=== PATIENT | male | born 1945 | race Caucasian/White ===

== ENCOUNTER 2018-08-18 10:11 | Inpatient (IN) | payer OTHER, MEDICARE ==
--- NOTE | 2018-08-18 10:38 | ER Document Report ---
ED Medical Screen (RME) - General Chief Complaint: Abdominal Pain Stated Complaint: ABDOMINAL PAIN Time Seen by Provider: 08/18/18 10:35 Mode of Arrival: Ambulatory Information source: Patient TRAVEL OUTSIDE OF THE [place] IN LAST 30 DAYS: No - HPI Patient complains to provider of: abd pain Onset: Yesterday - pt with onset of abdominal pain last night with vomiting times 2. Denies diarrhea - Related Data Allergies/Adverse Reactions: No Known Allergies Allergy (Verified 08/18/18 10:12) Past Medical History - Past Medical History Cardiac Medical History: Reports: Hx Hypertension - Hypertension Endocrine Medical History: Reports: Hx Diabetes Mellitus Type 2 Past Surgical History: Reports: Hx Abdominal Surgery, Hx Bowel Surgery - Immunizations Hx Diphtheria, Pertussis, Tetanus Vaccination: Yes Physical Exam - Vital signs Vitals: Temp Pulse Resp BP Pulse Ox 99.1 F 86 18 122/77 97 08/18/18 10:16 08/18/18 10:16 08/18/18 10:16 08/18/18 10:16 08/18/18 10:16 Course - Vital Signs Vital signs: Temp Pulse Resp BP Pulse Ox 99.1 F 86 18 122/77 97 08/18/18 10:16 08/18/18 10:16 08/18/18 10:16 08/18/18 10:16 08/18/18 10:16
[2018-08-18 11:28] LABS: ABSOLUTE EOSINOPHILS # (AUTO) 0.1 10^3/uL (0.0-0.6); ABSOLUTE LYMPHOCYTES (AUTO) 1.6 10^3/uL (0.5-4.7); ABSOLUTE NEUT (AUTO) 7.7 10^3/uL (1.7-8.2); BASOPHILS % (AUTO) 0.2 % (0-2); EOSINOPHILS % (AUTO) 0.9 % (0-6); HEMATOCRIT 41.1 % (37.9-51.0); HEMOGLOBIN 14.6 g/dL (13.5-17.0); LYMPHOCYTES % (AUTO) 15.8 % (13-45); MEAN CORPUSCULAR HGB CONC 35.5 g/dL (32.0-36.0); MEAN CORPUSCULAR VOLUME 87 fl (80-97); MONOCYTES % (AUTO) 9.5 % (3-13); PLATELET COUNT 142 10^3/uL (150-450); RED BLOOD COUNT 4.71 10^6/uL (4.35-5.55); RED CELL DISTRIBUTION WIDTH 13.2 % (11.5-14.0); SEGMENTED NEUTROPHILS % (AUTO) 73.6 % (42-78); TOTAL CELLS COUNTED % (AUTO) 100 %; WHITE BLOOD COUNT 10.4 10^3/uL (4.0-10.5)
[2018-08-18 11:35] LABS: APPEARANCE,URINE CLEAR; BILIRUBIN,URINE NEGATIVE (NEGATIVE); COLOR,URINE YELLOW; GLUCOSE, URINE NEGATIVE (NEGATIVE); KETONES,URINE NEGATIVE (NEGATIVE); LEUKOCYTE ESTERASE,URINE NEGATIVE (NEGATIVE); NITRITE,URINE NEGATIVE (NEGATIVE); PROTEIN,URINE NEGATIVE (NEGATIVE); URINE SPECIFIC GRAVITY 1.019
--- NOTE | 2018-08-18 11:42 | RADIOLOGY REPORT (SQ) ---
EXAM DESCRIPTION: ACUTE ABDOMEN SERIES COMPLETED DATE/TIME: 08/18/2018 11:09 am REASON FOR STUDY: abd pain COMPARISON: None. NUMBER OF VIEWS: Three views. TECHNIQUE: Frontal chest, supine abdomen and upright/decubitus abdomen radiographic images acquired. LIMITATIONS: None. FINDINGS: CHEST: Lungs clear of infiltrates. FREE AIR: None. No abnormal gas collections. BOWEL GAS PATTERN: Nonobstructive pattern. No dilated loops or air fluid levels. CALCIFICATIONS: No suspicious calcifications. HARDWARE: Large numbers of surgical clips are present in the mid and right abdomen. SOFT TISSUES: No gross mass or suggestion of organomegaly. BONES: No acute fracture. No worrisome bone lesions. OTHER: No other significant finding. IMPRESSION: NO RADIOGRAPHIC EVIDENCE FOR ACUTE ABDOMINAL DISEASE. TECHNICAL DOCUMENTATION: JOB ID: [id number] [employer]- All Rights Reserved Reading location - IP/workstation name: [email or web address]
[2018-08-18 11:55] LABS: ALANINE AMINOTRANSFERASE 35 U/L (21-72); ALBUMIN 4.1 g/dL (3.5-5.0); ALKALINE PHOSPHATASE 73 U/L (38-126); ANION GAP 10 (5-19); ASPARTATE AMINO TRANSFERASE 40 U/L (17-59); BILIRUBIN,DIRECT 0.2 mg/dL (0.0-0.4); BILIRUBIN,TOTAL 1.2 mg/dL (0.2-1.3); BLOOD UREA NITROGEN 19 mg/dL (7-20); CALCIUM 9.1 mg/dL (8.4-10.2); CARBON DIOXIDE 27 mmol/L (22-30); CHLORIDE 102 mmol/L (98-107); GLUCOSE 132 mg/dL (75-110); SODIUM 138.5 mmol/L (137-145); TOTAL PROTEIN 6.8 g/dL (6.3-8.2)
[2018-08-18 12:26] LABS: LIPASE 10562.6 U/L (23-300)
[2018-08-18] MEDS ORDERED: HYDROCORTISONE SOD SUCCINATE INJ/PF 100 MG/2 ML SDV IV ONE (13:04)
--- NOTE | 2018-08-18 13:51 | RADIOLOGY REPORT (SQ) ---
EXAM DESCRIPTION: CT ABD/PELVIS WITH IV ONLY COMPLETED DATE/TIME: 08/18/2018 1:10 pm REASON FOR STUDY: ABD PAIN COMPARISON: 12/17/2014 TECHNIQUE: CT scan of the abdomen and pelvis performed using helical scanning technique with dynamic intravenous contrast injection. No oral contrast. Images reviewed with lung, soft tissue, and bone windows. Reconstructed coronal and sagittal MPR images reviewed. Delayed images for evaluation of the urinary system also acquired. All images stored on PACS. All CT scanners at this facility use dose modulation, iterative reconstruction, and/or weight based d osing when appropriate to reduce radiation dose to as low as reasonably achievable (ALARA). [facility]: Dose Right [facility]: CareDose [facility]: Dose Right [facility]: Teradose 4D [facility]: Gliph CONTRAST TYPE AND DOSE: contrast/concentration: Isovue 350.00 mg/ml; Total Contrast Delivered: 100.0 ml; Total Saline Delivered: 72.0 ml RENAL FUNCTION: Creatinine -0.96 RADIATION DOSE: CT Rad equipment meets quality standard of care and radiation dose reduction techniq ues were employed. CTDIvol: 8.9 - 12.9 mGy. DLP: 1199 mGy-cm.. LIMITATIONS: None. FINDINGS: LOWER CHEST: No significant interval changes. Elevation of the left hemidiaphragm. LIVER: Prior resection of the right hepatic lobe. Persistent decrease in the pneumobilia and air in the pancreatic duct since the prior study, likely on a post surgical basis. The hepatic and portal veins are patent. SPLEEN: Splenule, normal anatomic variant. Normal size. No focal lesions. PANCREAS: As on the previous examination, mild haziness and stranding involving the peripancreatic s oft tissues and in the left upper quadrant of the abdomen. These findings may be on the basis of acu te superimposed inflammatory changes. GALLBLADDER: Prior cholecystectomy. ADRENAL GLANDS: The previously identified left adrenal nodule is not visualized on the current study . RIGHT KIDNEY AND URETER: No solid masses. No significant calcifications. No hydronephrosis or hyd roureter. LEFT KIDNEY AND URETER: Exophytic lesion off of the upper pole of the left kidney has increased in s ize and measures 17 mm on the current study, compared to 9.6 mm on the prior examination. No hydronep hrosis or hydroureter. AORTA AND VESSELS: No aneurysm. No dissection. Renal arteries, SMA, celiac without stenosis. RETROPERITONEUM: No retroperitoneal adenopathy, hemorrhage or masses. BOWEL AND PERITONEAL CAVITY: Constipation. No masses or inflammatory changes. No free fluid or adelita toneal masses. APPENDIX: Normal. PELVIS: Prostate gland is stable in appearance. Fat in the upper scrotal sacs. Mild thickening of the urinary bladder wall. No free fluid. ABDOMINAL WALL: Small fat containing umbilical hernia. BONES: The osseous structures are stable in appearance. OTHER: No other significant finding. IMPRESSION: 1. Mild haziness and stranding involve the peripancreatic soft tissues and in the left upper quadrant of the abdomen, findings are similar to the examination dated 12/17/2014. Consideratio ns for these findings include acute superimposed inflammatory changes. 2. Prior resection of the right hepatic lobe. 3. The previously demonstrated left adrenal nodule is not visualized on the current study. 4. Additional stable findings as above. COMMENT: 1. The results of this examination were discussed with emergency department provider on at 13:45 hours. TECHNICAL DOCUMENTATION: JOB ID: [id number] Quality ID # [id number]: Final reports with documentation of one or more dose reduction techniques (e.g., Au tomated exposure control, adjustment of the mA and/or kV according to patient size, use of iterative reconstruction technique) 2010 [employer]- All Rights Reserved Reading location - IP/workstation name: [email or web address]
--- NOTE | 2018-08-18 13:57 | ER Document Report ---
ED GI/ - General Chief Complaint: Abdominal Pain Stated Complaint: ABDOMINAL PAIN Time Seen by Provider: 08/18/18 10:35 Mode of Arrival: Ambulatory Information source: Patient Notes: Patient is a 72-year-old male with past medical history of metastatic melanoma in 2002 to his abdomen. He did have abdominal surgeries with gallbladder resection and adrenal gland resection. Patient has had a recurrence of the melanoma x3 in the past. Patient was here in 2014 with some abdominal pain found to have pancreatitis. He was transferred to [facility] and it appears that the patient had a retained biliary stent that the family states was supposed to have taken out immediately after the surgery in 2004 but was accidentally left in. Patient has not had pancreatitis prior after this incidence. Last night the patient had some epigastric nonradiating abdominal discomfort. Nausea and vomiting x2. He was not able to take his hydrocortisone medication secondary to this. No lower abdominal pain or diarrhea. Temperature max of 100.6. TRAVEL OUTSIDE OF THE [place] IN LAST 30 DAYS: No - HPI Patient complains to provider of: Other - See above Timing/Duration: Gradual Quality of pain: Achy Severity at maximum: Moderate Severity in ED: Mild Pain Level: 1 Location: Other - See above Sexual history: Active Associated symptoms: Other - See above Exacerbated by: Denies Relieved by: Denies Similar symptoms previously: No Recently seen / treated by doctor: No - Related Data Allergies/Adverse Reactions: No Known Allergies Allergy (Verified 08/18/18 10:12) Past Medical History - General Information source: Patient - Social History Smoking Status: Former Smoker Cigarette use (# per day): No Chew tobacco use (# tins/day): No Smoking Education Provided: No Frequency of alcohol use: Occasional Drug Abuse: None Family History: Reviewed & Not Pertinent Patient has suicidal ideation: No Patient has homicidal ideation: No - Past Medical History Cardiac Medical History: Reports: Hx Hypertension - Hypertension Endocrine Medical History: Reports: Hx Diabetes Mellitus Type 2 Renal/ Medical History: Denies: Hx Peritoneal Dialysis Past Surgical History: Reports: Hx Abdominal Surgery, Hx Bowel Surgery, Hx Cholecystectomy - Immunizations Hx Diphtheria, Pertussis, Tetanus Vaccination: Yes Hx Pneumococcal Vaccination: 08/07/13 Review of Systems - Review of Systems Constitutional: Fever EENT: denies: Eye discharge, Nose discharge Cardiovascular: denies: Chest pain, Palpitations Respiratory: denies: Short of breath Gastrointestinal: Vomiting. denies: Diarrhea Genitourinary: denies: Dysuria Musculoskeletal: denies: Leg swelling Skin: Other - no hives. denies: Rash Neurological/Psychological: Other - no slurred speech -: Yes All other systems reviewed and negative Physical Exam - Vital signs Vitals: Temp Pulse Resp BP Pulse Ox 99.1 F 86 18 122/77 97 08/18/18 10:16 10 10:16 08/18/18 10:16 08/18/18 10:16 08/18/18 10:16 Notes: Reviewed vital signs and nursing note as charted by RN. CONSTITUTIONAL: Alert and oriented and responds appropriately to questions. Well -appearing; well-nourished HEAD: Normocephalic; atraumatic EYES: Sclerae non-icteric CARD: Regular rate and rhythm; no murmurs, no clicks, no rubs, no gallops; symmetric distal pulses RESP: Normal chest excursion without splinting or tachypnea; breath sounds clear and equal bilaterally; no wheezes, no rhonchi, no rales ABD/GI: Normal bowel sounds; non-distended; soft, mildly tender the epigastric region, no rebound, no guarding; no palpable organomegaly or masses BACK: The back appears normal and is non-tender to palpation, there is no CVA tenderness EXT: Normal ROM in all joints; non-tender to palpation; no cyanosis, no effusions, no edema SKIN: Normal color for age and race; warm; dry; good turgor; capillary refill < 2 seconds; no acute lesions noted NEURO: Moves all extremities equally; Motor and sensory function intact PSYCH: The patient's mood and manner are appropriate. Grooming and personal hygiene are appropriate. Course - Re-evaluation Re-evalutation: 08/18/18 13:55 Given the above history and physical examination, we ordered basic labs including a liver panel and lipase. Lipase as recorded. CT scan of the abdomen and pelvis was ordered showing no obvious dilation with some peripancreatic soft tissue inflammation consistent with pancreatitis. I have called and spoken to the radiologist about the pneumobilia which she states is common and not an acute finding. Patient's pain is much improved. Afebrile here. Given that he was not able to take his hydrocortisone I have provided an IV dose, doubling the dose as a stress response dose. Patient is requesting not to be transferred to [facility]. He actually stated that he thought he would like to go home. Given that the patient has not been able to take his hydrocortisone medication and still is having some mild pain, family would like him to stay. He has accepted this. I spoke to the hospitalist was accepted into the service. - Vital Signs Vital signs: Temp Pulse Resp BP Pulse Ox 99.1 F 86 18 122/77 97 08/18/18 10:16 08/18/18 10:16 08/18/18 10:16 08/18/18 10:16 08/18/18 10:16 - Laboratory Result Diagrams: 08/18/18 10:50 08/18/18 10:50 Laboratory results interpreted by me: 08/18/18 08/18/18 08/18/18 10:50 10:50 10:50 Plt Count 142 L Glucose 132 H Lipase 20831.6 H Urine Urobilinogen 4.0 H Discharge - Discharge Clinical Impression: Pancreatitis Qualifiers: Chronicity: acute Pancreatitis type: unspecified pancreatitis type Acute pancreatitis complication: unspecified Qualified Code(s): K85.90 - Acute pancreatitis without necrosis or infection, unspecified Condition: Fair Disposition: ADMITTED OBSERVATION Admitting Provider: Hospitalist Unit Admitted: Medical Floor
[2018-08-18] MEDS ORDERED: ONDANSETRON HCL INJ/PF 4 MG/2 ML SDV IV PRN (15:28)
[2018-08-18] MEDS ORDERED: DEXTROSE 40% GEL 15 GM TUBE PO PRN ×4 (15:28→15:57)
[2018-08-18] MEDS ORDERED: ACETAMINOPHEN 325 MG TABLET PO PRN (15:28)
[2018-08-18] MEDS ORDERED: DEXTROSE 50%-WATER 25 GM/50 ML DISP.SYRIN IV PRN ×4 (15:28→15:57)
[2018-08-18] MEDS ORDERED: GLUCAGON,HUMAN RECOMB 1 MG INJ SUBCUT PRN (15:28)
[2018-08-18] MEDS ORDERED: HYDROMORPHONE HCL INJ/PF 2 MG/ML AMPULE IV PRN (15:39)
[2018-08-18] MEDS ORDERED: GLUCAGON,HUMAN RECOMB 1 MG INJ IM PRN (15:57)
[2018-08-18] MEDS ORDERED: INSULIN REG, HUMAN 100 UNIT/ML 3 ML VIAL (PYX) SUBCUT PRN (15:57)
--- NOTE | 2018-08-18 15:57 | PDOC H&P ---
History of Present Illness Admission Date/PCP: 08/18/18 13:57 Patient complains of: Abdominal pain History of Present Illness: MELECIO PAUL is a 72 year old male who was in his normal state of health. Approximately 12:30 AM this morning patient developed abdominal pain. When he got out of bed the pain appeared to intensify. Patient is a prior history of pancreatitis and it felt similar. The pain persisted throughout the night and into the morning he presented to the emergency room. Patient has a prior history of abdominal surgery due to metastatic melanoma. Approximately 14 years ago he underwent a laparotomy with resection of a lobe of the liver removal of the gallbladder and bilateral adrenal glands. He was treated for his melanoma and it went into remission. Approximately 2 years ago it returned and he was placed on Optivo and is once again in remission. During his first surgical resection a biliary stent was placed which was subsequently her liver removed 2 years ago when he had about of pancreatitis and a CT at that time showed he still had the biliary stent which was placed during surgery. It was subsequently removed without incident and he has been fine since. Patient has adrenal insufficiency due to his adrenal gland resections he is on Florinef and hydrocortisone. Workup in the emergency room included laboratory studies which showed a fairly unremarkable CBC LFTs were normal his lipase was 10,000. CT showed inflammation of the pancreas no dilatation of the biliary ducts. He was given 50 of IV hydrocortisone for his adrenal insufficiency to cover stress and a request for admission was made. 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, Other - Adrenal insufficiency secondary to surgical resection of the adrenal glands Malignancy Medical History: Reports: Other - Melanoma metastatic currently in remission Past Surgical History Past Surgical History: Reports: Cholecystectomy, Other - Laparotomy with resection of gallbladder lobe of the liver and adrenals Social History Smoking Status: Former Smoker Frequency of Alcohol Use: None Hx Recreational Drug Use: No Hx Prescription Drug Abuse: No Family History Family History: CAD - Father, Hypertension - Father Parental Family History Reviewed: Yes Children Family History Reviewed: Yes Sibling(s) Family History Reviewed.: Yes Medication/Allergy Home Medications: Amlodipine Besylate [Norvasc 10 mg Tablet] 5 mg PO DAILY 08/18/18 Allergies/Adverse Reactions: No Known Allergies Allergy (Verified 10/12/18 10:12) Physical Exam Vital Signs: Temp Pulse Resp BP Pulse Ox 99.1 F 86 18 122/77 97 08/18/18 10:16 08/18/18 10:16 08/18/18 10:16 08/18/18 10:16 08/18/18 10:16 General appearance: PRESENT: no acute distress, well-developed, well-nourished Head exam: PRESENT: atraumatic, normocephalic Eye exam: PRESENT: conjunctiva pink, EOMI, PERRLA. ABSENT: scleral icterus Neck exam: ABSENT: carotid bruit, JVD, lymphadenopathy, thyromegaly Respiratory exam: PRESENT: clear to auscultation amandeep. ABSENT: rales, rhonchi, wheezes Cardiovascular exam: PRESENT: RRR. ABSENT: diastolic murmur, rubs, systolic murmur Pulses: PRESENT: normal dorsalis pedis pul GI/Abdominal exam: PRESENT: guarding - Positive on palpation, normal bowel sounds, rebound, soft, tenderness - Midepigastric tenderness. ABSENT: distended , mass, organolmegaly Extremities exam: PRESENT: full ROM. ABSENT: calf tenderness, clubbing, pedal edema Neurological exam: PRESENT: alert, awake, oriented to person, oriented to place , oriented to time, oriented to situation, CN II-XII grossly intact. ABSENT: motor sensory deficit Psychiatric exam: PRESENT: appropriate affect, normal mood. ABSENT: homicidal ideation, suicidal ideation Skin exam: PRESENT: dry, intact, warm. ABSENT: cyanosis, rash Results Impressions: Abdomen/Pelvis CT 08/18/18 00:00 IMPRESSION: 1. Mild haziness and stranding involve the peripancreatic soft tissues and in the left upper quadrant of the abdomen, findings are similar to the examination dated 12/17/2014. Considerations for these findings include acute superimposed inflammatory changes. 2. Prior resection of the right hepatic lobe. 3. The previously demonstrated left adrenal nodule is not visualized on the current study. 4. Additional stable findings as above. Acute Abdomen Series 08/18/18 10:36 IMPRESSION: NO RADIOGRAPHIC EVIDENCE FOR ACUTE ABDOMINAL DISEASE. Assessment & Plan - Diagnosis (1) Acute pancreatitis Is this a current diagnosis for this admission?: Yes Plan: Admit patient to the medical floor provided D5 lactated Ringer's n.p.o. except for meds and ice chips. Dilaudid for pain control (2) History of melanoma Is this a current diagnosis for this admission?: Yes Plan: Currently in remission as per patient no further workup planned (3) Adrenal insufficiency Is this a current diagnosis for this admission?: Yes Plan: Will increase hydrocortisone to 50 mg twice daily reducing back to his normal dose of 20 mg in the morning 10 at night when the stress of the pancreatitis past. (4) Diabetes Qualifiers: Diabetes mellitus type: type 2 Diabetes mellitus complication status: without complication Is this a current diagnosis for this admission?: Yes Plan: Patient diet-controlled will place on sliding scale (5) Hypertension Is this a current diagnosis for this admission?: Yes Plan: Hold amlodipine reinitiate when indicated. - Time Time Spent: 50 to 70 Minutes Anticipated discharge: Home Within: within 72 hours
[2018-08-18] MEDS: DEXTROSE 5%-LACTATED RINGERS 1,000 ML IV PRN (18:13)
[2018-08-19] MEDS: DEXTROSE 5%-LACTATED RINGERS 1,000 ML IV PRN ×2 (04:33→16:55)
[2018-08-19 05:25] LABS: ABSOLUTE EOSINOPHILS # (AUTO) 0.1 10^3/uL (0.0-0.6); ABSOLUTE LYMPHOCYTES (AUTO) 3.3 10^3/uL (0.5-4.7); ABSOLUTE MONOCYTES (AUTO) 0.7 10^3/uL (0.1-1.4); ABSOLUTE NEUT (AUTO) 4.4 10^3/uL (1.7-8.2); BASOPHILS % (AUTO) 0.2 % (0-2); HEMATOCRIT 36.9 % (37.9-51.0); HEMOGLOBIN 13.1 g/dL (13.5-17.0); LYMPHOCYTES % (AUTO) 38.9 % (13-45); MEAN CORPUSCULAR HEMOGLOBIN 31.1 pg (27.0-33.4); MEAN CORPUSCULAR HGB CONC 35.6 g/dL (32.0-36.0); MEAN CORPUSCULAR VOLUME 87 fl (80-97); MONOCYTES % (AUTO) 8.2 % (3-13); PLATELET COUNT 133 10^3/uL (150-450); RED BLOOD COUNT 4.23 10^6/uL (4.35-5.55); RED CELL DISTRIBUTION WIDTH 13.4 % (11.5-14.0); SEGMENTED NEUTROPHILS % (AUTO) 51.7 % (42-78); TOTAL CELLS COUNTED % (AUTO) 100 %; WHITE BLOOD COUNT 8.6 10^3/uL (4.0-10.5)
[2018-08-19 05:43] LABS: ALANINE AMINOTRANSFERASE 38 U/L (21-72); ALBUMIN 3.3 g/dL (3.5-5.0); ALKALINE PHOSPHATASE 56 U/L (38-126); ANION GAP 5 (5-19); ASPARTATE AMINO TRANSFERASE 27 U/L (17-59); BILIRUBIN,DIRECT 0.3 mg/dL (0.0-0.4); BILIRUBIN,TOTAL 1.4 mg/dL (0.2-1.3); BLOOD UREA NITROGEN 17 mg/dL (7-20); CALCIUM 8.6 mg/dL (8.4-10.2); CARBON DIOXIDE 32 mmol/L (22-30); CHLORIDE 102 mmol/L (98-107); CHOLESTEROL 117.62 mg/dL (0-200); GLUCOSE 108 mg/dL (75-110); PHOSPHORUS 3.1 mg/dL (2.5-4.5); POTASSIUM 3.8 mmol/L (3.6-5.0); TOTAL PROTEIN 5.7 g/dL (6.3-8.2); TRIGLYCERIDES 62 mg/dL (<150)
[2018-08-19 05:54] LABS: DIRECT LDL 60 mg/dL (<100)
[2018-08-19] MEDS: HYDROCORTISONE 10 MG TABLET PO SCH ×2 (07:26→17:35)
[2018-08-19] MEDS: FLUDROCORTISONE ACETATE 0.1 MG TABLET PO SCH (09:13)
[2018-08-19] MEDS: DOCUSATE SODIUM 100 MG CAPSULE PO SCH (09:13)
[2018-08-19] MEDS: ENOXAPARIN SODIUM INJ 40 MG/0.4 ML DISP.SYRIN SUBCUT SCH (09:15)
--- NOTE | 2018-08-19 13:25 | PDOC PROGRESS REPORT ---
Subjective Progress Note for:: 08/19/18 Subjective:: 72-year-old white male admitted for acute pancreatitis. Has been n.p.o. pain is decreased. Lipase now 7000. White count remains normal no evidence of biliary obstruction. No new complaints Reason For Visit: PANCREATITIS Physical Exam Vital Signs: Temp Pulse Resp BP Pulse Ox 98.2 F 73 17 136/66 H 97 08/19/18 11:41 08/19/18 11:41 08/19/18 11:41 08/19/18 11:41 08/19/18 11:41 Intake & Output 08/18/18 08/19/18 08/20/18 06:59 06:59 06:59 Intake Total 1000 Balance 1000 Weight 81.6 kg General appearance: PRESENT: no acute distress, well-developed, well-nourished Neck exam: ABSENT: carotid bruit, JVD, lymphadenopathy, thyromegaly Respiratory exam: PRESENT: clear to auscultation amandeep. ABSENT: rales, rhonchi, wheezes Cardiovascular exam: PRESENT: RRR. ABSENT: diastolic murmur, rubs, systolic murmur GI/Abdominal exam: PRESENT: normal bowel sounds, soft, tenderness - Midepigastric improved from 24 hours ago. ABSENT: distended, guarding, mass, organolmegaly, rebound Extremities exam: PRESENT: full ROM. ABSENT: calf tenderness, clubbing, pedal edema Results Laboratory Results: 08/19/18 04:22 08/19/18 04:22 08/19/18 08/19/18 04:22 04:22 WBC 8.6 RBC 4.23 L Hgb 13.1 L Hct 36.9 L MCV 87 MCH 31.1 MCHC 35.6 RDW 13.4 Plt Count 133 L Seg Neutrophils % 51.7 Lymphocytes % 38.9 Monocytes % 8.2 Eosinophils % 1.0 Basophils % 0.2 Absolute Neutrophils 4.4 Absolute Lymphocytes 3.3 Absolute Monocytes 0.7 Absolute Eosinophils 0.1 Absolute Basophils 0.0 Sodium 139.0 Potassium 3.8 Chloride 102 Carbon Dioxide 32 H Anion Gap 5 BUN 17 Creatinine 0.83 Est GFR ( Amer) > 60 Est GFR (Non-Af Amer) > 60 Glucose 108 Calcium 8.6 Phosphorus 3.1 Magnesium 1.8 Total Bilirubin 1.4 H AST 27 ALT 38 Alkaline Phosphatase 56 Total Protein 5.7 L Albumin 3.3 L Triglycerides 62 Cholesterol 117.62 LDL Cholesterol Direct 60 VLDL Cholesterol 12.0 HDL Cholesterol 42 Lipase 7334.0 H Impressions: Abdomen/Pelvis CT 08/18/18 00:00 IMPRESSION: 1. Mild haziness and stranding involve the peripancreatic soft tissues and in the left upper quadrant of the abdomen, findings are similar to the examination dated 12/17/2014. Considerations for these findings include acute superimposed inflammatory changes. 2. Prior resection of the right hepatic lobe. 3. The previously demonstrated left adrenal nodule is not visualized on the current study. 4. Additional stable findings as above. Acute Abdomen Series 08/18/18 10:36 IMPRESSION: NO RADIOGRAPHIC EVIDENCE FOR ACUTE ABDOMINAL DISEASE. Assessment & Plan - Diagnosis (1) Acute pancreatitis Is this a current diagnosis for this admission?: Yes Plan: Continue n.p.o. status. Lipase in a.m. Will consider beginning clear liquids when patient's pain is minimal lipase under 600 (2) History of melanoma Is this a current diagnosis for this admission?: Yes (3) Adrenal insufficiency Is this a current diagnosis for this admission?: Yes Plan: On increased hydrocortisone 50 mg twice daily. Will taper to 25 twice daily tomorrow (4) Diabetes Qualifiers: Diabetes mellitus type: type 2 Diabetes mellitus complication status: without complication Is this a current diagnosis for this admission?: Yes Plan: Good glycemic control. Sliding scale coverage patient is a diet-controlled diabetic (5) Hypertension Is this a current diagnosis for this admission?: Yes Plan: Normotensive continue to monitor no change in medication
[2018-08-20] MEDS: DEXTROSE 5%-LACTATED RINGERS 1,000 ML IV PRN ×2 (02:10→15:20)
[2018-08-20] MEDS: HYDROCORTISONE 10 MG TABLET PO SCH (09:27)
[2018-08-20] MEDS: DOCUSATE SODIUM 100 MG CAPSULE PO SCH (09:27)
[2018-08-20] MEDS: FLUDROCORTISONE ACETATE 0.1 MG TABLET PO SCH (09:28)
[2018-08-20] MEDS: ENOXAPARIN SODIUM INJ 40 MG/0.4 ML DISP.SYRIN SUBCUT SCH (09:29)
--- NOTE | 2018-08-20 11:19 | PDOC PROGRESS REPORT ---
Subjective Progress Note for:: 08/20/18 Subjective:: 72-year-old white male admitted for acute pancreatitis. Has been n.p.o. pain is decreased. Lipase now 2200. White count remains normal no evidence of biliary obstruction. No new complaints Reason For Visit: PANCREATITIS Physical Exam Vital Signs: Temp Pulse Resp BP Pulse Ox 98.3 F 65 15 147/68 H 99 08/20/18 07:32 08/20/18 07:32 08/20/18 07:32 08/20/18 07:32 08/20/18 07:32 Intake & Output 08/19/18 08/20/18 08/21/18 06:59 06:59 06:59 Intake Total 1000 1925 Balance 1000 1925 Weight 81.6 kg 81.6 kg General appearance: PRESENT: no acute distress, well-developed, well-nourished Respiratory exam: PRESENT: clear to auscultation amandeep. ABSENT: rales, rhonchi, wheezes Cardiovascular exam: PRESENT: RRR. ABSENT: diastolic murmur, rubs, systolic murmur GI/Abdominal exam: PRESENT: normal bowel sounds, soft, tenderness - Minimal midepigastric tenderness. ABSENT: distended, guarding, mass, organolmegaly, rebound Extremities exam: PRESENT: full ROM. ABSENT: calf tenderness, clubbing, pedal edema Results Laboratory Results: 08/19/18 04:22 08/19/18 04:22 08/20/18 04:53 Lipase 2255.2 H Impressions: Abdomen/Pelvis CT 08/18/18 00:00 IMPRESSION: 1. Mild haziness and stranding involve the peripancreatic soft tissues and in the left upper quadrant of the abdomen, findings are similar to the examination dated 12/17/2014. Considerations for these findings include acute superimposed inflammatory changes. 2. Prior resection of the right hepatic lobe. 3. The previously demonstrated left adrenal nodule is not visualized on the current study. 4. Additional stable findings as above. Acute Abdomen Series 08/18/18 10:36 IMPRESSION: NO RADIOGRAPHIC EVIDENCE FOR ACUTE ABDOMINAL DISEASE. Assessment & Plan - Diagnosis (1) Acute pancreatitis Is this a current diagnosis for this admission?: Yes Plan: Continue n.p.o. status for 24 hours. CMP and lipase in a.m. Will consider beginning clear liquids when patient's pain is minimal lipase under 800 (2) Adrenal insufficiency Is this a current diagnosis for this admission?: Yes Plan: Resume patient's normal dose of hydrocortisone 20 mg a.m. 10 mg p.m. (3) Diabetes Qualifiers: Diabetes mellitus type: type 2 Diabetes mellitus complication status: without complication Is this a current diagnosis for this admission?: Yes Plan: Hemoglobin A1c 5.8 good glycemic control. Sliding scale coverage patient is a diet-controlled diabetic (4) Hypertension Is this a current diagnosis for this admission?: Yes Plan: Normotensive continue to monitor no change in medication (5) History of melanoma Is this a current diagnosis for this admission?: Yes Plan: Currently in remission - Time Time Spent with patient: 25-34 minutes Anticipated discharge: Home Within: within 48 hours
[2018-08-20] MEDS ORDERED: HYDROCORTISONE 10 MG TABLET PO SCH (18:00)
[2018-08-21] MEDS: DEXTROSE 5%-LACTATED RINGERS 1,000 ML IV PRN (05:50)
[2018-08-21 06:14] LABS: ABSOLUTE EOSINOPHILS # (AUTO) 0.1 10^3/uL (0.0-0.6); ABSOLUTE LYMPHOCYTES (AUTO) 3.4 10^3/uL (0.5-4.7); ABSOLUTE MONOCYTES (AUTO) 0.5 10^3/uL (0.1-1.4); BASOPHILS % (AUTO) 0.4 % (0-2); EOSINOPHILS % (AUTO) 0.7 % (0-6); HEMATOCRIT 37.6 % (37.9-51.0); HEMOGLOBIN 13.6 g/dL (13.5-17.0); MEAN CORPUSCULAR HEMOGLOBIN 31.2 pg (27.0-33.4); MEAN CORPUSCULAR HGB CONC 36.3 g/dL (32.0-36.0); MEAN CORPUSCULAR VOLUME 86 fl (80-97); MONOCYTES % (AUTO) 7.1 % (3-13); PLATELET COUNT 145 10^3/uL (150-450); RED BLOOD COUNT 4.38 10^6/uL (4.35-5.55); SEGMENTED NEUTROPHILS % (AUTO) 42.8 % (42-78); TOTAL CELLS COUNTED % (AUTO) 100 %; WHITE BLOOD COUNT 6.9 10^3/uL (4.0-10.5)
[2018-08-21 06:36] LABS: ALANINE AMINOTRANSFERASE 32 U/L (21-72); ALBUMIN 3.5 g/dL (3.5-5.0); ALKALINE PHOSPHATASE 58 U/L (38-126); ANION GAP 9 (5-19); ASPARTATE AMINO TRANSFERASE 21 U/L (17-59); BILIRUBIN,DIRECT 0.3 mg/dL (0.0-0.4); BILIRUBIN,TOTAL 1.2 mg/dL (0.2-1.3); BLOOD UREA NITROGEN 13 mg/dL (7-20); CALCIUM 8.7 mg/dL (8.4-10.2); CARBON DIOXIDE 27 mmol/L (22-30); CHLORIDE 107 mmol/L (98-107); GLUCOSE 90 mg/dL (75-110); LIPASE 1063.8 U/L (23-300); POTASSIUM 3.3 mmol/L (3.6-5.0); SODIUM 142.7 mmol/L (137-145)
[2018-08-21] MEDS ORDERED: HYDROCORTISONE 10 MG TABLET PO SCH (08:00)
[2018-08-21] MEDS: DOCUSATE SODIUM 100 MG CAPSULE PO SCH (09:54)
[2018-08-21] MEDS: ENOXAPARIN SODIUM INJ 40 MG/0.4 ML DISP.SYRIN SUBCUT SCH (09:55)
[2018-08-21] MEDS ORDERED: OXYCODONE-ACETAMINOPHEN 5-325 MG TABLET PO PRN (10:21)
[2018-08-21] MEDS: FLUDROCORTISONE ACETATE 0.1 MG TABLET PO SCH (11:03)
--- NOTE | 2018-08-21 14:13 | PDOC DISCHARGE SUMMARY ---
General - Admit/Disc Date/PCP Admission Date/Primary Care Provider: 08/18/18 13:57 Discharge Date: 08/21/18 - Discharge Diagnosis (1) Acute pancreatitis Is this a current diagnosis for this admission?: Yes Summary: Initial lipase of 10,000 lipase 1000. LFTs were normal. Triglyceride 62 cholesterol 117 LDL 60 HDL 42 no cause for pancreatitis found (2) Adrenal insufficiency Is this a current diagnosis for this admission?: Yes (3) Diabetes Is this a current diagnosis for this admission?: Yes Summary: Hemoglobin A1c 5.8 patient currently on diet control (4) Hypertension Is this a current diagnosis for this admission?: Yes (5) History of melanoma Is this a current diagnosis for this admission?: Yes - Additional Information Resuscitation Status: Full Code Discharge Diet: Full Liquids Discharge Activity: Activity As Tolerated Prescriptions: Oxycodone HCl/Acetaminophen [Percocet 5-325 mg Tablet] 1 tab PO Q4 #15 tab Home Medications: Amlodipine Besylate [Norvasc 10 mg Tablet] 5 mg PO DAILY 08/18/18 Acetaminophen [Tylenol 325 mg Tablet] 650 mg PO Q4HP PRN tablet 08/21/18 Fludrocortisone Acetate [Florinef 0.1 mg Tablet] 0.05 mg PO DAILY tablet Hydrocortisone [Cortef 10 mg Tablet] 10 mg PO QPM tablet 08/21/18 Hydrocortisone [Cortef 10 mg Tablet] 20 mg PO QAM tablet 08/21/18 Oxycodone HCl/Acetaminophen [Percocet 5-325 mg Tablet] 1 tab PO Q4 #15 tab 08/21 History of Present Illness History of Present Illness: MELECIO PAUL is a 72 year old male who was in his normal state of health. Approximately 12:30 AM this morning patient developed abdominal pain. When he got out of bed the pain appeared to intensify. Patient is a prior history of pancreatitis and it felt similar. The pain persisted throughout the night and into the morning he presented to the emergency room. Patient has a prior history of abdominal surgery due to metastatic melanoma. Approximately 14 years ago he underwent a laparotomy with resection of a lobe of the liver removal of the gallbladder and bilateral adrenal glands. He was treated for his melanoma and it went into remission. Approximately 2 years ago it returned and he was placed on Optivo and is once again in remission. During his first surgical resection a biliary stent was placed which was subsequently her liver removed 2 years ago when he had about of pancreatitis and a CT at that time showed he still had the biliary stent which was placed during surgery. It was subsequently removed without incident and he has been fine since. Patient has adrenal insufficiency due to his adrenal gland resections he is on Florinef and hydrocortisone Hospital Course Hospital Course: Patient was admitted to the medical bed was given IV hydration made n.p.o. His initial lipase 10,000 reduced as expected during the course of the hospital today to 7000 2000 and 1000 at the time of discharge. He was initiated on clear liquids advance to full liquids prior to discharge. He tolerated the full liquids adequately with no pain he was discharged with instructions to continue full liquids for at least 24-48 hours and then advance his diet slowly eating small portions as tolerated. He is to follow-up with his primary care provider in 7-10 days. During the course of the hospital stay his hydrocortisone was increased to cover stress and titrated back down to his normal dosing of 20 mg in the morning 10 at night. His glycemic control was good throughout the hospital stay his hemoglobin A1c was 5.8. Physical Exam Vital Signs: Temp Pulse Resp BP Pulse Ox 97.8 F 61 16 160/70 H 98 08/21/18 07:22 08/21/18 07:22 08/21/18 07:22 08/21/18 07:22 08/21/18 07:22 Intake & Output 08/20/18 08/21/18 08/22/18 06:59 06:59 06:59 Intake Total 1924 1999 Balance 1924 1999 Weight 81.6 kg 81.4 kg General appearance: PRESENT: no acute distress, well-developed, well-nourished Head exam: PRESENT: atraumatic, normocephalic Neck exam: ABSENT: carotid bruit, JVD, lymphadenopathy, thyromegaly Respiratory exam: PRESENT: clear to auscultation amandeep. ABSENT: rales, rhonchi, wheezes Cardiovascular exam: PRESENT: RRR. ABSENT: diastolic murmur, rubs, systolic murmur Pulses: PRESENT: normal dorsalis pedis pul GI/Abdominal exam: PRESENT: normal bowel sounds, soft, tenderness - Minimal midepigastric tenderness. ABSENT: distended, guarding, mass, organolmegaly, rebound Extremities exam: PRESENT: full ROM. ABSENT: calf tenderness, clubbing, pedal edema Results Laboratory Results: 08/21/18 05:54 08/21/18 05:54 08/21/18 08/21/18 05:54 05:54 WBC 6.9 RBC 4.38 Hgb 13.6 Hct 37.6 L MCV 86 MCH 31.2 MCHC 36.3 H RDW 13.0 Plt Count 145 L Seg Neutrophils % 42.8 Lymphocytes % 49.0 H Monocytes % 7.1 Eosinophils % 0.7 Basophils % 0.4 Absolute Neutrophils 3.0 Absolute Lymphocytes 3.4 Absolute Monocytes 0.5 Absolute Eosinophils 0.1 Absolute Basophils 0.0 Sodium 142.7 Potassium 3.3 L Chloride 107 Carbon Dioxide 27 Anion Gap 9 BUN 13 Creatinine 0.79 Est GFR ( Amer) > 60 Est GFR (Non-Af Amer) > 60 Glucose 90 Calcium 8.7 Total Bilirubin 1.2 AST 21 ALT 32 Alkaline Phosphatase 58 Total Protein 6.0 L Albumin 3.5 Lipase 1063.8 H Impressions: Abdomen/Pelvis CT 08/18/18 00:00 IMPRESSION: 1. Mild haziness and stranding involve the peripancreatic soft tissues and in the left upper quadrant of the abdomen, findings are similar to the examination dated 12/17/2014. Considerations for these findings include acute superimposed inflammatory changes. 2. Prior resection of the right hepatic lobe. 3. The previously demonstrated left adrenal nodule is not visualized on the current study. 4. Additional stable findings as above. Acute Abdomen Series 08/18/18 10:36 IMPRESSION: NO RADIOGRAPHIC EVIDENCE FOR ACUTE ABDOMINAL DISEASE. Qualifiers - * PATIENT BEING DISCHARGED WITH ANY OF THE FOLLOWING DIAGNOSIS: No Plan Time Spent: Greater than 30 Minutes
[2018-08-21 14:31] VITALS: BP 135/64
== END 2018-08-21 15:40 | disposition home or self-care (01) | DRG 439 ==
LOC: ER 10:11 → EH 13:57 → OBSVTOIN 13:57 → 4S 16:16
PROVIDERS: ADMIT Internal Medicine; ATTEND Internal Medicine
DX: K85.90 Acute pancreatitis without necrosis or infection, unspecified (principal); C79.9 Secondary malignant neoplasm of unspecified site; E27.40 Unspecified adrenocortical insufficiency; I10 Essential (primary) hypertension; E11.8 Type 2 diabetes mellitus with unspecified complications; R10.9 Unspecified abdominal pain
CPT/HCPCS: 36415; 74022; 74177; 80053; 80061; 81001; 82962; 83036; 83690; 83735; 84100; 85025; 96374; 99285; J1650; J1720; J3490

== ENCOUNTER 2020-04-03 11:05 | Inpatient (IN) | payer OTHER, MEDICARE ==
[2020-04-03 11:58] LABS: ABSOLUTE BASOPHILS # (AUTO) 0.1 10^3/uL (0.0-0.2); ABSOLUTE LYMPHOCYTES (AUTO) 0.7 10^3/uL (0.5-4.7); ABSOLUTE MONOCYTES (AUTO) 0.4 10^3/uL (0.1-1.4); ABSOLUTE NEUT (AUTO) 11.7 10^3/uL (1.7-8.2); BASOPHILS % (AUTO) 0.4 % (0-2); EOSINOPHILS % (AUTO) 0.1 % (0-6); HEMATOCRIT 39.8 % (37.9-51.0); HEMOGLOBIN 14.3 g/dL (13.5-17.0); LYMPHOCYTES % (AUTO) 5.8 % (13-45); MEAN CORPUSCULAR HEMOGLOBIN 31.5 pg (27.0-33.4); MEAN CORPUSCULAR VOLUME 87 fl (80-97); MONOCYTES % (AUTO) 2.9 % (3-13); PLATELET COUNT 139 10^3/uL (150-450); RED BLOOD COUNT 4.56 10^6/uL (4.35-5.55); RED CELL DISTRIBUTION WIDTH 13.5 % (11.5-14.0); SEGMENTED NEUTROPHILS % (AUTO) 90.8 % (42-78); TOTAL CELLS COUNTED % (AUTO) 100 %; WHITE BLOOD COUNT 12.8 10^3/uL (4.0-10.5)
[2020-04-03] MEDS ORDERED: NORMAL SALINE 1000 ML 1,000 ML IV ONE (12:08)
--- NOTE | 2020-04-03 12:09 | ER Document Report ---
ED General - General Chief Complaint: Abdominal Pain Stated Complaint: ABDOMINAL PAIN Time Seen by Provider: 04/03/20 12:07 TRAVEL OUTSIDE OF THE [place] IN LAST 30 DAYS: No - HPI Notes: 74-year-old male with a history of diabetes, hypertension with a history of nonalcoholic pancreatitis presents to the emergency room today with complaints of 2 days of abdominal. patient reports he had severe pain at 3 AM this morning, reports abdominal distention and a fever this morning of 102 F. Patient states he has been vomiting since 3:00 this morning. Patient reports his pain was severe. Last bowel movement was yesterday, states he is regular. Patient does have a history of chronic pancreatitis. Denies any chest pain, shortness of breath, lower back pain, fever, chills, lower back pain. MEDICATIONS: I agree with the patient medications as charted by the RN. ALLERGIES: I agree with the allergies as charted by the RN. PAST MEDICAL HISTORY/PAST SURGICAL HISTORY: Reviewed and agree as charted by RN. SOCIAL HISTORY: Reviewed and agree as charted by RN. FAMILY HISTORY: No significant familial comorbid conditions directly related to patient complaint EXAM: Reviewed vital signs as charted by RN. REVIEW OF SYSTEMS:reviewed vital signs by RN CONSTITUTIONAL : Denies fever, chills, or sweats. Denies recent illness. EENT: Denies eye, ear, throat, or mouth pain or symptoms. Denies nasal or sinus congestion or discharge. Denies throat, tongue, or mouth swelling or difficulty swallowing. CARDIOVASCULAR: Denies chest pain. Denies palpitations or racing or irregular heart beat. Denies ankle edema. RESPIRATORY: Denies cough, cold, or chest congestion. Denies shortness of breath, difficulty breathing, or wheezing. GASTROINTESTINAL: reports abdominal pain or distention. reports nausea, vomiting. denies diarrhea. Denies blood in vomitus, stools, or per rectum. Denies black, tarry stools. Denies constipation. GENITOURINARY: Denies difficulty urinating, painful urination, burning, frequency, blood in urine, or discharge. MUSCULOSKELETAL: Denies back or neck pain or stiffness. Denies joint pain or swelling. SKIN: Denies rash, lesions or sores. HEMATOLOGIC : Denies easy bruising or bleeding. LYMPHATIC: Denies swollen, enlarged glands. NEUROLOGICAL: Denies confusion or altered mental status. Denies passing out or loss of consciousness. Denies dizziness or lightheadedness. Denies headache. Denies weakness or paralysis or loss of use of either side. Denies problems with gait or speech. Denies sensory loss, numbness, or tingling. Denies seizures. PSYCHIATRIC: Denies anxiety or stress. Denies depression, suicidal ideation, or homicidal ideation. ALL OTHER SYSTEMS REVIEWED AND NEGATIVE. Dictation was performed using [employer] voice recognition software PHYSICAL EXAMINATION: GENERAL: Ill-appearing, well-nourished and in moderate distress HEAD: Atraumatic, normocephalic. NECK: Normal range of motion, supple without lymphadenopathy LUNGS: Breath sounds clear to auscultation bilaterally and equal. No wheezes rales or rhonchi. HEART: Regular rate and rhythm without murmurs ABDOMEN: Generalized tenderness, distended abdomen. No guarding, no rebound. No masses appreciated. No CVA tenderness appreciated bilaterally Musculoskeletal: Normal range of motion, no pitting or edema. No cyanosis. NEUROLOGICAL: Cranial nerves grossly intact. Normal speech, normal gait. Normal sensory, motor exams PSYCH: Normal mood, normal affect. SKIN: Warm, Dry, normal turgor, no rashes or lesions noted. 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 pt given IV fluids and given 3mg of morphine for pain control as well as antiemetics . CBC shows a white count of 12.8, lipase 6108.3, lipase 739. No hepatic or renal dysfunction, no electrolyte disturbances. Patient states he does feel better after some IV fluids and morphine. CT abdomen pelvis with IV contrast shows inflammatory stranding and fluid in the adelita-pancreatic soft tissue which is a similar finding to 2018 2014. Chest X-ray unremarkable. Consulted with PETAR Nix at 1330, who will admit patient to medical service on the medical floor for acute pancreatitis for management and pain control. Negative rapid strep, negative rapid flu patient's COVID testing is pending. - Vital Signs Vital signs: Temp Pulse Resp BP Pulse Ox 98.1 F 71 18 148/73 H 97 04/03/20 16:14 04/03/20 16:14 04/03/20 16:14 04/03/20 16:14 04/03/20 16:14 - Laboratory Result Diagrams: 04/03/20 11:45 04/03/20 11:45 Laboratory results interpreted by me: 04/03/20 04/03/20 04/03/20 11:45 11:45 11:45 WBC 12.8 H Plt Count 139 L Lymph % (Auto) 5.8 L Concho % (Auto) 2.9 L Absolute Neuts (auto) 11.7 H Seg Neutrophils % 90.8 H Sodium 134.7 L Glucose 197 H Creatine Kinase Amylase Lipase 6108.3 H Urine Ketones Urine Urobilinogen 04/03/20 04/03/20 11:45 13:30 WBC Plt Count Lymph % (Auto) Concho % (Auto) Absolute Neuts (auto) Seg Neutrophils % Sodium Glucose Creatine Kinase 46 L Amylase 739 H Lipase Urine Ketones TRACE H Urine Urobilinogen 2.0 H Discharge - Discharge Clinical Impression: Acute pancreatitis Condition: Stable Disposition: ADMITTED INPATIENT Admitting Provider: Nova (Hospitalist) Unit Admitted: Medical Floor
[2020-04-03 12:26] LABS: ALKALINE PHOSPHATASE 66 U/L (38-126); ANION GAP 7 (5-19); ASPARTATE AMINO TRANSFERASE 32 U/L (17-59); BILIRUBIN,TOTAL 1.1 mg/dL (0.2-1.3); BLOOD UREA NITROGEN 16 mg/dL (7-20); CARBON DIOXIDE 27 mmol/L (22-30); CHLORIDE 101 mmol/L (98-107); GLUCOSE 197 mg/dL (75-110); POTASSIUM 4.3 mmol/L (3.6-5.0); TOTAL PROTEIN 6.5 g/dL (6.3-8.2)
[2020-04-03] MEDS ORDERED: MORPHINE SULFATE 10 MG/ML INJ IV ONE ×2 (12:44→14:53)
--- NOTE | 2020-04-03 13:25 | RADIOLOGY REPORT (SQ) ---
EXAM DESCRIPTION: CHEST SINGLE VIEW IMAGES COMPLETED DATE/TIME: 04/03/2020 1:00 pm REASON FOR STUDY: upper abdominal pain COMPARISON: 06/04/2016 EXAM PARAMETERS: NUMBER OF VIEWS: One view. TECHNIQUE: Single frontal radiographic view of the chest acquired. RADIATION DOSE: NA LIMITATIONS: None. FINDINGS: LUNGS AND PLEURA: No opacities, masses or pneumothorax. No pleural effusion. MEDIASTINUM AND HILAR STRUCTURES: No masses. Contour normal. HEART AND VASCULAR STRUCTURES: Heart normal in size. Normal vasculature. BONES: No acute findings. HARDWARE: None in the chest. OTHER: No other significant finding. IMPRESSION: NO ACUTE RADIOGRAPHIC FINDING IN THE CHEST. TECHNICAL DOCUMENTATION: JOB ID: [id number] 2010 [employer]- All Rights Reserved Reading location - IP/workstation name: [email or web address]
[2020-04-03 13:39] LABS: APPEARANCE,URINE SLIGHTLY-CLOUDY; BILIRUBIN,URINE NEGATIVE (NEGATIVE); COLOR,URINE YELLOW; GLUCOSE, URINE NEGATIVE (NEGATIVE); KETONES,URINE TRACE mg/dL (NEGATIVE); LEUKOCYTE ESTERASE,URINE NEGATIVE (NEGATIVE); NITRITE,URINE NEGATIVE (NEGATIVE); PROTEIN,URINE NEGATIVE (NEGATIVE); URINE SPECIFIC GRAVITY 1.009
[2020-04-03] MEDS ORDERED: MAG HYDROX/AL HYDROX/SIMETH SUSP 30 ML UDCUP PO PRN (13:56)
[2020-04-03] MEDS ORDERED: OXYCODONE-ACETAMINOPHEN 5-325 MG TABLET PO PRN (13:56)
[2020-04-03] MEDS ORDERED: TEMAZEPAM 7.5 MG CAPSULE PO PRN (13:56)
[2020-04-03] MEDS ORDERED: ACETAMINOPHEN 325 MG TABLET PO PRN (13:56)
[2020-04-03] MEDS ORDERED: ONDANSETRON 4 MG TAB.RAPDIS PO PRN (13:56)
[2020-04-03] MEDS ORDERED: ONDANSETRON HCL INJ/PF 4 MG/2 ML SDV IV PRN (13:56)
[2020-04-03] MEDS ORDERED: MORPHINE SULFATE 10 MG/ML INJ IV PRN (14:12)
[2020-04-03 14:32] LABS: INTERNATIONAL RATION (INR) 0.95; PROTHROMBIN TIME 12.7 SEC (11.4-15.4)
[2020-04-03 14:42] LABS: AMYLASE 739 U/L (30-110); CREATINE KINASE 46 U/L (55-170)
[2020-04-03] MEDS ORDERED: AMLODIPINE BESYLATE 5 MG TABLET PO ONE (15:00)
--- NOTE | 2020-04-03 15:36 | RADIOLOGY REPORT (SQ) ---
EXAM DESCRIPTION: CT ABD/PELVIS WITH IV ONLY IMAGES COMPLETED DATE/TIME: 04/03/2020 3:18 pm REASON FOR STUDY: abd pain, hx of pancreatitis COMPARISON: 08/18/2018 and 12/17/2014. TECHNIQUE: CT scan of the abdomen and pelvis performed using helical scanning technique with dynamic intravenous contrast injection. No oral contrast. Images reviewed with lung, soft tissue, and bone windows. Reconstructed coronal and sagittal MPR images reviewed. Delayed images for evaluation of the urinary system also acquired. All images stored on PACS. All CT scanners at this facility use dose modulation, iterative reconstruction, and/or weight based d osing when appropriate to reduce radiation dose to as low as reasonably achievable (ALARA). [facility]: Dose Right [facility]: CareDose [facility]: Dose Right [facility]: Teradose 4D [facility]: Digitick CONTRAST TYPE AND DOSE: contrast/concentration: Isovue 350.00 mg/ml; Total Contrast Delivered: 95.0 ml; Total Saline Delivered: 43.0 ml RENAL FUNCTION: BUN 16 creatinine 0.98. RADIATION DOSE: CT Rad equipment meets quality standard of care and radiation dose reduction techniq ues were employed. CTDIvol: 10.7 - 15.0 mGy. DLP: 1471 mGy-cm.. LIMITATIONS: None. FINDINGS: LOWER CHEST: No significant findings. No nodules or infiltrates. LIVER: Previous right hepatic lobe resection. No masses. No dilated ducts. SPLEEN: Normal size. No focal lesions. PANCREAS: No masses. No significant calcifications. Inflammatory stranding and fluid in the peripanc reatic tissues extending to the left pericolic gutter. Pancreatic duct not dilated. GALLBLADDER: Surgically absent. ADRENAL GLANDS: No significant masses or asymmetry. RIGHT KIDNEY AND URETER: Stable small hypodense exophytic cortical lesion. No significant calcifica tions. No hydronephrosis or hydroureter. LEFT KIDNEY AND URETER: Stable hyperdense exophytic cortical lesion, Hounsfield units 75. No signif icant calcifications. No hydronephrosis or hydroureter. AORTA AND VESSELS: No aneurysm. No dissection. Renal arteries, SMA, celiac without stenosis. RETROPERITONEUM: No retroperitoneal adenopathy, hemorrhage or masses. BOWEL AND PERITONEAL CAVITY: No masses or inflammatory changes. No free fluid or peritoneal masses. APPENDIX: Normal. PELVIS: No mass. No free fluid. Normal bladder. ABDOMINAL WALL: No masses. No hernias. BONES: No significant or acute findings. OTHER: No other significant finding. IMPRESSION: 1. INFLAMMATORY STRANDING AND FLUID IN THE PERIPANCREATIC SOFT TISSUES. SIMILAR FINDINGS IN 2018 AND 2014. MAY BE DUE TO CHRONIC AND RECURRENT PANCREATITIS. 2. STABLE CORTICAL LESIONS IN BOTH KIDNEYS, LIKELY COMPLEX CYSTS. 3. STABLE SURGICAL CHANGES. RESECTION OF THE RIGHT HEPATIC LOBE. 4. NO OTHER SIGNIFICANT OR ACUTE FINDING IN THE ABDOMEN OR PELVIS ON CT SCAN WITH IV CONTRAST. TECHNICAL DOCUMENTATION: JOB ID: [id number] Quality ID # [id number]: Final reports with documentation of one or more dose reduction techniques (e.g., Au tomated exposure control, adjustment of the mA and/or kV according to patient size, use of iterative reconstruction technique) 2010 [employer]- All Rights Reserved Reading location - IP/workstation name: [email or web address]
--- NOTE | 2020-04-03 15:51 | PDOC H&P ---
History of Present Illness Admission Date/PCP: 04/03/20 14:[facility] History of Present Illness: MELECIO PAUL is a 74 year old male comes in with a 2-day history of worsening abdominal pain. Patient has had nonalcoholic pancreatitis twice before once about 1 year ago and the first time about 3 years ago.. He states the first time he was sent to [facility], second time he was hospitalized here for about 7 days. Patient states he is also had some vomiting.. States he actually feels better since he has been treated in the ER with fluids and IV morphine. Lipase today is 04/07/2008. 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 Patient's other medical problem includes hypertension. Patient now comes in for 2 to 3 days of abdominal pain and apparent acute on chronic pancreatitis. Patient does not appear to be septic or toxic. 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, Other - Adrenal melanoma Malignancy Medical History: Reports: Other - Melanoma adrenal gland cancer Past Surgical History Past Surgical History: Reports: Cholecystectomy, Other - Laparotomy with resection of gallbladder lobe of the liver and adrenals Social History Smoking Status: Former Smoker Electronic Cigarette use?: No Frequency of Alcohol Use: Rare Hx Recreational Drug Use: No Drugs: None Hx Prescription Drug Abuse: No - Advance Directive Resuscitation Status: Full Code Family History Family History: CAD - Father, Hypertension - Father Parental Family History Reviewed: No Children Family History Reviewed: No Sibling(s) Family History Reviewed.: No Medication/Allergy Home Medications: Amlodipine Besylate [Norvasc 10 mg Tablet] 5 mg PO DAILY 08/18/18 Acetaminophen [Tylenol 325 mg Tablet] 650 mg PO Q4HP PRN tablet 08/21/18 Fludrocortisone Acetate [Florinef 0.1 mg Tablet] 0.05 mg PO DAILY tablet 08/21/18 Hydrocortisone [Cortef 10 mg Tablet] 10 mg PO QPM tablet 08/21/18 Hydrocortisone [Cortef 10 mg Tablet] 20 mg PO QAM tablet 08/21/18 Oxycodone HCl/Acetaminophen [Percocet 5-325 mg Tablet] 1 tab PO Q4 #15 tab 08/21/18 Allergies/Adverse Reactions: No Known Allergies Allergy (Verified 04/03/20 11:36) Review of Systems Constitutional: PRESENT: fever(s). ABSENT: chills, headache(s), weight gain, weight loss Cardiovascular: ABSENT: chest pain, dyspnea on exertion, edema, orthropnea, palpitations Respiratory: ABSENT: cough, hemoptysis Gastrointestinal: PRESENT: abdominal pain, nausea, vomiting Neurological: ABSENT: abnormal gait, abnormal speech, confusion, dizziness, focal weakness, syncope Psychiatric: ABSENT: anxiety, depression, homidical ideation, suicidal ideation Physical Exam Vital Signs: Temp Pulse Resp BP Pulse Ox 99.4 F 93 16 145/90 H 96 04/03/20 11:36 04/03/20 11:32 04/03/20 11:32 04/03/20 11:32 04/03/20 11:32 Intake & Output 04/02/20 04/03/20 04/04/20 06:59 06:59 06:59 Intake Total 1000 Balance 1000 Weight 92.986 kg General appearance: PRESENT: no acute distress - Sitting up in bed talking in no distress Respiratory exam: PRESENT: clear to auscultation amandeep. ABSENT: rales, rhonchi, wheezes Cardiovascular exam: PRESENT: RRR. ABSENT: diastolic murmur, rubs, systolic murmur GI/Abdominal exam: PRESENT: diminished bowel sounds, soft, tenderness - Upper quadrant and epigastric region Neurological exam: PRESENT: alert, awake, oriented to person, oriented to place, oriented to time, oriented to situation, CN II-XII grossly intact. ABSENT: motor sensory deficit Psychiatric exam: PRESENT: appropriate affect, normal mood. ABSENT: homicidal ideation, suicidal ideation Results Laboratory Results: 04/03/20 11:45 04/03/20 11:45 04/03/20 04/03/20 04/03/20 11:45 11:45 11:45 WBC 12.8 H RBC 4.56 Hgb 14.3 Hct 39.8 MCV 87 MCH 31.5 MCHC 36.0 RDW 13.5 Plt Count 139 L Seg Neutrophils % 90.8 H Sodium 134.7 L Potassium 4.3 Chloride 101 Carbon Dioxide 27 Anion Gap 7 BUN 16 Creatinine 0.98 Est GFR ( Amer) > 60 Glucose 197 H Lactic Acid Calcium 9.0 Total Bilirubin 1.1 AST 32 Alkaline Phosphatase 66 Total Protein 6.5 Albumin 4.0 Amylase Lipase 6108.3 H Urine Color Urine Appearance Urine pH Ur Specific [place] Urine Protein Urine Glucose (UA) Urine Ketones Urine Blood Urine Nitrite Ur Leukocyte Esterase Urine WBC (Auto) 04/03/20 04/03/20 04/03/20 11:45 12:40 13:30 WBC RBC Hgb Hct MCV MCH MCHC RDW Plt Count Seg Neutrophils % Sodium Potassium Chloride Carbon Dioxide Anion Gap BUN Creatinine Est GFR ( Amer) Glucose Lactic Acid 1.3 Calcium Total Bilirubin AST Alkaline Phosphatase Total Protein Albumin Amylase 739 H Lipase Urine Color YELLOW Urine Appearance SLIGHTLY-CLOUDY Urine pH 8.0 Ur Specific [place] 1.009 Urine Protein NEGATIVE Urine Glucose (UA) NEGATIVE Urine Ketones TRACE H Urine Blood NEGATIVE Urine Nitrite NEGATIVE Ur Leukocyte Esterase NEGATIVE Urine WBC (Auto) 1 04/03/20 04/03/20 11:45 11:45 Creatine Kinase 46 L NT-Pro-B Natriuret Pep 92 Impressions: Chest X-Ray 04/03/20 12:08 IMPRESSION: NO ACUTE RADIOGRAPHIC FINDING IN THE CHEST. Abdomen/Pelvis CT 04/03/20 13:17 IMPRESSION: 1. INFLAMMATORY STRANDING AND FLUID IN THE PERIPANCREATIC SOFT TISSUES. SIMILAR FINDINGS IN 2018 AND 2014. MAY BE DUE TO CHRONIC AND RECURRENT PANCREATITIS. 2. STABLE CORTICAL LESIONS IN BOTH KIDNEYS, LIKELY COMPLEX CYSTS. 3. STABLE SURGICAL CHANGES. RESECTION OF THE RIGHT HEPATIC LOBE. 4. NO OTHER SIGNIFICANT OR ACUTE FINDING IN THE ABDOMEN OR PELVIS ON CT SCAN WITH IV CONTRAST. Assessment and Plan - Diagnosis (1) Abdominal pain Qualifiers: Abdominal location: unspecified location Qualified Code(s): R10.9 - Unspecified abdominal pain Is this a current diagnosis for this admission?: Yes (2) Acute pancreatitis Is this a current diagnosis for this admission?: Yes (3) Adrenal insufficiency Is this a current diagnosis for this admission?: Yes (4) Diabetes Qualifiers: Diabetes mellitus type: type 2 Diabetes mellitus complication status: without complication Is this a current diagnosis for this admission?: Yes (5) History of melanoma Is this a current diagnosis for this admission?: Yes (6) Hypertension Is this a current diagnosis for this admission?: Yes - Plan Summary Summary: Patient will be admitted for IV fluids, IV pain medicine, ice chips, and serial labs.. She did have a CT scan of the abdomen and pelvis which showed inflammatory stranding and fluid in the peripancreatic soft tissues. See the complete report Patient appears to be medically stable. It should be noted that patient denies any alcohol drinking and that his symptoms seem to have started after he ate some "almonds" - Time Time Spent with patient: 35 or more minutes
[2020-04-03] MEDS: NORMAL SALINE 1000 ML 1,000 ML IV PRN ×2 (15:58→23:48)
[2020-04-03] MEDS: ENOXAPARIN SODIUM INJ 40 MG/0.4 ML DISP.SYRIN SUBCUT SCH (15:58)
[2020-04-03] MEDS: HYDROCORTISONE 10 MG TABLET PO SCH (19:00)
[2020-04-03] MEDS: FAMOTIDINE INJ/PF 20 MG/2 ML SDV IV SCH (21:29)
[2020-04-04 05:50] LABS: ABSOLUTE LYMPHOCYTES (AUTO) 1.4 10^3/uL (0.5-4.7); ABSOLUTE MONOCYTES (AUTO) 0.7 10^3/uL (0.1-1.4); ABSOLUTE NEUT (AUTO) 12.1 10^3/uL (1.7-8.2); BASOPHILS % (AUTO) 0.1 % (0-2); HEMATOCRIT 37.9 % (37.9-51.0); HEMOGLOBIN 13.6 g/dL (13.5-17.0); LYMPHOCYTES % (AUTO) 9.8 % (13-45); MEAN CORPUSCULAR HEMOGLOBIN 31.5 pg (27.0-33.4); MEAN CORPUSCULAR HGB CONC 35.9 g/dL (32.0-36.0); MEAN CORPUSCULAR VOLUME 88 fl (80-97); MONOCYTES % (AUTO) 4.9 % (3-13); PLATELET COUNT 142 10^3/uL (150-450); RED BLOOD COUNT 4.32 10^6/uL (4.35-5.55); RED CELL DISTRIBUTION WIDTH 13.4 % (11.5-14.0); SEGMENTED NEUTROPHILS % (AUTO) 85.2 % (42-78); TOTAL CELLS COUNTED % (AUTO) 100 %; WHITE BLOOD COUNT 14.3 10^3/uL (4.0-10.5)
[2020-04-04 06:20] LABS: ALBUMIN 3.4 g/dL (3.5-5.0); ALKALINE PHOSPHATASE 51 U/L (38-126); ANION GAP 8 (5-19); ASPARTATE AMINO TRANSFERASE 25 U/L (17-59); BLOOD UREA NITROGEN 18 mg/dL (7-20); CALCIUM 8.2 mg/dL (8.4-10.2); CARBON DIOXIDE 24 mmol/L (22-30); CHLORIDE 105 mmol/L (98-107); GLUCOSE 146 mg/dL (75-110); TOTAL PROTEIN 5.8 g/dL (6.3-8.2)
--- NOTE | 2020-04-04 07:17 | EKG REPORT ---
SEVERITY:- NORMAL ECG - SINUS RHYTHM : Confirmed by: Malcolm Goode MD 04-Apr-2020 07:16:24
[2020-04-04] MEDS: HYDROCORTISONE 10 MG TABLET PO SCH ×2 (09:19→17:27)
[2020-04-04] MEDS: FLUDROCORTISONE ACETATE 0.1 MG TABLET PO SCH (09:19)
[2020-04-04] MEDS: FAMOTIDINE INJ/PF 20 MG/2 ML SDV IV SCH ×2 (09:20→22:03)
[2020-04-04] MEDS: DOCUSATE SODIUM 100 MG CAPSULE PO SCH (09:20)
[2020-04-04] MEDS: NORMAL SALINE 1000 ML 1,000 ML IV PRN ×2 (09:25→18:00)
--- NOTE | 2020-04-04 09:33 | PDOC PROGRESS REPORT ---
Subjective Progress Note for:: 04/04/20 Reason For Visit: PANCREATITIS,ABDOMINAL PAIN,ADRENAL CANCER, Physical Exam Vital Signs: Temp Pulse Resp BP Pulse Ox 97.8 F 64 16 136/63 H 97 04/04/20 07:23 04/04/20 07:23 04/04/20 07:23 04/04/20 07:23 04/04/20 07:23 Intake & Output 04/03/20 04/04/20 04/05/20 06:59 06:59 06:59 Intake Total 1978 1000 Balance 1978 1000 Weight 95.2 kg General appearance: PRESENT: no acute distress Respiratory exam: PRESENT: clear to auscultation amandeep. ABSENT: rales, rhonchi, wheezes Cardiovascular exam: PRESENT: RRR. ABSENT: diastolic murmur, rubs, systolic murmur GI/Abdominal exam: PRESENT: hyperactive bowel sounds, soft - No significant tenderness Neurological exam: PRESENT: alert, awake, oriented to person, oriented to place, oriented to time, oriented to situation, CN II-XII grossly intact. ABSENT: motor sensory deficit Psychiatric exam: PRESENT: appropriate affect, normal mood. ABSENT: homicidal ideation, suicidal ideation Results Laboratory Results: 04/04/20 04:52 04/04/20 04:52 04/03/20 04/03/20 04/03/20 11:45 11:45 11:45 WBC 12.8 H RBC 4.56 Hgb 14.3 Hct 39.8 MCV 87 MCH 31.5 MCHC 36.0 RDW 13.5 Plt Count 139 L Seg Neutrophils % 90.8 H Sodium 134.7 L Potassium 4.3 Chloride 101 Carbon Dioxide 27 Anion Gap 7 BUN 16 Creatinine 0.98 Est GFR ( Amer) > 60 Glucose 197 H Lactic Acid Calcium 9.0 Magnesium Total Bilirubin 1.1 AST 32 Alkaline Phosphatase 66 Total Protein 6.5 Albumin 4.0 Amylase Lipase 6108.3 H Urine Color Urine Appearance Urine pH Ur Specific [place] Urine Protein Urine Glucose (UA) Urine Ketones Urine Blood Urine Nitrite Ur Leukocyte Esterase Urine WBC (Auto) 04/03/20 04/03/20 04/03/20 11:45 12:40 13:30 WBC RBC Hgb Hct MCV MCH MCHC RDW Plt Count Seg Neutrophils % Sodium Potassium Chloride Carbon Dioxide Anion Gap BUN Creatinine Est GFR ( Amer) Glucose Lactic Acid 1.3 Calcium Magnesium Total Bilirubin AST Alkaline Phosphatase Total Protein Albumin Amylase 739 H Lipase Urine Color YELLOW Urine Appearance SLIGHTLY-CLOUDY Urine pH 8.0 Ur Specific [place] 1.009 Urine Protein NEGATIVE Urine Glucose (UA) NEGATIVE Urine Ketones TRACE H Urine Blood NEGATIVE Urine Nitrite NEGATIVE Ur Leukocyte Esterase NEGATIVE Urine WBC (Auto) 1 04/04/20 04/04/20 04:52 04:52 WBC 14.3 H RBC 4.32 L Hgb 13.6 Hct 37.9 MCV 88 MCH 31.5 MCHC 35.9 RDW 13.4 Plt Count 142 L Seg Neutrophils % 85.2 H Sodium 136.6 L Potassium 4.0 Chloride 105 Carbon Dioxide 24 Anion Gap 8 BUN 18 Creatinine 0.79 Est GFR ( Amer) > 60 Glucose 146 H Lactic Acid Calcium 8.2 L Magnesium 1.6 Total Bilirubin 1.0 AST 25 Alkaline Phosphatase 51 Total Protein 5.8 L Albumin 3.4 L Amylase Lipase 3469.2 H Urine Color Urine Appearance Urine pH Ur Specific [place] Urine Protein Urine Glucose (UA) Urine Ketones Urine Blood Urine Nitrite Ur Leukocyte Esterase Urine WBC (Auto) 04/03/20 04/03/20 11:45 11:45 Creatine Kinase 46 L NT-Pro-B Natriuret Pep 92 Impressions: Chest X-Ray 04/03/20 12:08 IMPRESSION: NO ACUTE RADIOGRAPHIC FINDING IN THE CHEST. Abdomen/Pelvis CT 04/03/20 13:17 IMPRESSION: 1. INFLAMMATORY STRANDING AND FLUID IN THE PERIPANCREATIC SOFT TISSUES. SIMILAR FINDINGS IN 2018 AND 2014. MAY BE DUE TO CHRONIC AND RECURRENT PANCREATITIS. 2. STABLE CORTICAL LESIONS IN BOTH KIDNEYS, LIKELY COMPLEX CYSTS. 3. STABLE SURGICAL CHANGES. RESECTION OF THE RIGHT HEPATIC LOBE. 4. NO OTHER SIGNIFICANT OR ACUTE FINDING IN THE ABDOMEN OR PELVIS ON CT SCAN WITH IV CONTRAST. Assessment and Plan - Diagnosis (1) Abdominal pain Qualifiers: Abdominal location: unspecified location Qualified Code(s): R10.9 - Unspecified abdominal pain Is this a current diagnosis for this admission?: Yes (2) Acute pancreatitis Is this a current diagnosis for this admission?: Yes (3) Adrenal insufficiency Is this a current diagnosis for this admission?: Yes (4) Diabetes Qualifiers: Diabetes mellitus type: type 2 Diabetes mellitus complication status: without complication Is this a current diagnosis for this admission?: Yes (5) History of melanoma Is this a current diagnosis for this admission?: Yes (6) Hypertension Is this a current diagnosis for this admission?: Yes - Plan Summary Summary: Patient will be admitted for IV fluids, IV pain medicine, ice chips, and serial labs.. She did have a CT scan of the abdomen and pelvis which showed inflammato ry stranding and fluid in the peripancreatic soft tissues. See the complete report Patient appears to be medically stable. It should be noted that patient denies any alcohol drinking and that his symptoms seem to have started after he ate some "almonds" 04/03/2020 Temperature 97.8 pulse 68 blood pressure 151/69 which appears to be his baseline oxygen saturation 96% on room air White count 14,300 hemoglobin A1c is 6.4 Lipase on admission 6108 today it is 3469 Patient denies nausea vomiting or significant abdominal pain We will advance diet to clear liquid today and if does well, regular diet in the morning and if he does well with that discharge tomorrow I have explained this approach to the patient and he seems satisfied - Time Time Spent with patient: 25-34 minutes
[2020-04-04] MEDS: ENOXAPARIN SODIUM INJ 40 MG/0.4 ML DISP.SYRIN SUBCUT SCH (10:38)
[2020-04-05] MEDS: NORMAL SALINE 1000 ML 1,000 ML IV PRN ×2 (04:03→09:38)
[2020-04-05 06:09] LABS: ABSOLUTE LYMPHOCYTES (AUTO) 2.2 10^3/uL (0.5-4.7); ABSOLUTE MONOCYTES (AUTO) 0.6 10^3/uL (0.1-1.4); ABSOLUTE NEUT (AUTO) 6.1 10^3/uL (1.7-8.2); BASOPHILS % (AUTO) 0.2 % (0-2); EOSINOPHILS % (AUTO) 0.1 % (0-6); HEMATOCRIT 34.6 % (37.9-51.0); HEMOGLOBIN 12.7 g/dL (13.5-17.0); LYMPHOCYTES % (AUTO) 24.8 % (13-45); MEAN CORPUSCULAR HEMOGLOBIN 31.9 pg (27.0-33.4); MEAN CORPUSCULAR HGB CONC 36.7 g/dL (32.0-36.0); MEAN CORPUSCULAR VOLUME 87 fl (80-97); PLATELET COUNT 137 10^3/uL (150-450); RED BLOOD COUNT 3.98 10^6/uL (4.35-5.55); RED CELL DISTRIBUTION WIDTH 13.6 % (11.5-14.0); SEGMENTED NEUTROPHILS % (AUTO) 67.9 % (42-78); TOTAL CELLS COUNTED % (AUTO) 100 %
[2020-04-05] MEDS: HYDROCORTISONE 10 MG TABLET PO SCH (07:48)
[2020-04-05] MEDS: DOCUSATE SODIUM 100 MG CAPSULE PO SCH (09:35)
[2020-04-05] MEDS: FAMOTIDINE INJ/PF 20 MG/2 ML SDV IV SCH (09:35)
[2020-04-05] MEDS: FLUDROCORTISONE ACETATE 0.1 MG TABLET PO SCH (09:35)
[2020-04-05] MEDS: ENOXAPARIN SODIUM INJ 40 MG/0.4 ML DISP.SYRIN SUBCUT SCH (09:46)
[2020-04-05 11:26] VITALS: BP 148/73
--- NOTE | 2020-04-19 19:11 | PDOC DISCHARGE SUMMARY ---
Impression - Admit/DC Date/PCP Admission Date/Primary Care Provider: 04/03/20 14:[facility] Discharge Date: 04/05/20 - Discharge Diagnosis (1) Abdominal pain Is this a current diagnosis for this admission?: Yes (2) Acute pancreatitis Is this a current diagnosis for this admission?: Yes (3) Adrenal insufficiency Is this a current diagnosis for this admission?: Yes (4) Diabetes Is this a current diagnosis for this admission?: Yes (5) History of melanoma Is this a current diagnosis for this admission?: Yes (6) Hypertension Is this a current diagnosis for this admission?: Yes - Assessment Summary: Patient will be admitted for IV fluids, IV pain medicine, ice chips, and serial labs.. She did have a CT scan of the abdomen and pelvis which showed inflamm atory stranding and fluid in the peripancreatic soft tissues. See the complete report Patient appears to be medically stable. It should be noted that patient denies any alcohol drinking and that his symptoms seem to have started after he ate some "almonds" 04/03/2020 Temperature 97.8 pulse 68 blood pressure 151/69 which appears to be his baseline oxygen saturation 96% on room air White count 14,300 hemoglobin A1c is 6.4 Lipase on admission 6108 today it is 3469 Patient denies nausea vomiting or significant abdominal pain We will advance diet to clear liquid today and if does well, regular diet in the morning and if he does well with that discharge tomorrow I have explained this approach to the patient and he seems satisfied 04/04/2020 Patient's labs continue to improve Patient's diet will be advanced slowly Will be discharge either today or tomorrow No significant abdominal pain no vomiting 04/05/2020 His vital signs are stable Lipase today is 1817 White count is come down to 9000 H&H is stable 12.7 34.6 platelets stable 137,000 Patient is asking to go home he is to follow-up with his primary care provider and his physicians at [facility] Patient is medically stable for discharge today from his pancreatitis Patient is told to continue a soft bland diet - Additional Information Resuscitation Status: Full Code Discharge Diet: Full Liquids, Other (Comments) Discharge Activity: Activity As Tolerated, Bedrest Referrals: [facility] - ([facility] Please call and schedule a follow-up appointment during normal business hours. You will need to to call prior to your appointment. Thank you and have a fabulous day.) Prescriptions: Ondansetron [Zofran Odt 4 mg Tablet] 4 mg PO Q6HP PRN 3 Days #10 tab.rapdis PRN Reason: Home Medications: Amlodipine Besylate [Norvasc 10 mg Tablet] 10 mg PO DAILY 08/18/18 Fludrocortisone Acetate [Florinef 0.1 mg Tablet] 0.05 mg PO DAILY tablet 08/21/18 Hydrocortisone [Cortef 10 mg Tablet] 10 mg PO QPM tablet 08/21/18 Hydrocortisone [Cortef 10 mg Tablet] 20 mg PO QAM tablet 08/21/18 Hydrocortisone [Cortef] 20 mg PO QPMP PRN 04/03/20 Metformin HCl [Metformin HCl ER] 1,000 mg PO QHS 04/03/20 Acetaminophen [Tylenol 325 mg Tablet] 650 mg PO Q6HP PRN tablet 04/05/20 Docusate Sodium [Colace 100 mg Capsule] 100 mg PO DAILY capsule 04/05/20 Fludrocortisone Acetate [Florinef 0.1 mg Tablet] 0.05 mg PO DAILY tablet 04/05/20 Hydrocortisone [Cortef 10 mg Tablet] 10 mg PO QPM tablet 04/05/20 Hydrocortisone [Cortef 10 mg Tablet] 20 mg PO QAM tablet 04/05/20 Mag Hydrox/Al Hydrox/Simeth [Maalox Plus Susp 30 Udcup] 30 ml PO Q6HP PRN udc 04/05/20 Ondansetron [Zofran Odt 4 mg Tablet] 4 mg PO Q6HP PRN 3 Days #10 tab.rapdis 04/05/20 History of Present Illiness History of Present Illness: MELECIO PAUL is a 74 year old male comes in with a 2-day history of worsening abdominal pain. Patient has had nonalcoholic pancreatitis twice before once about 1 year ago and the first time about 3 years ago.. He states the first time he was sent to [facility], second time he was hospitalized here for about 7 days. Patient states he is also had some vomiting.. States he actually feels better since he has been treated in the ER with fluids and IV morphine. Lipase today is 04/07/2008. 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 Patient's other medical problem includes hypertension. Patient now comes in for 2 to 3 days of abdominal pain and apparent acute on chronic pancreatitis. Patient does not appear to be septic or toxic. She reportedly did have a fever with temperature 102 at home but presentation to the ER it was 99.4 Physical Exam Vital Signs: Temp Pulse Resp BP Pulse Ox 98.7 F 62 16 148/73 H 98 04/05/20 11:24 04/05/20 11:24 04/05/20 11:24 04/05/20 11:24 04/05/20 11:24 Results Laboratory Results: WBC 9.0 10^3/uL (4.0-10.5) 04/05/20 05:12 RBC 3.98 10^6/uL (4.35-5.55) L 04/05/20 05:12 Hgb 12.7 g/dL (13.5-17.0) L 04/05/20 05:12 Hct 34.6 % (37.9-51.0) L 04/05/20 05:12 MCV 87 fl (80-97) 04/05/20 05:12 MCH 31.9 pg (27.0-33.4) 04/05/20 05:12 MCHC 36.7 g/dL (32.0-36.0) H 04/05/20 05:12 RDW 13.6 % (11.5-14.0) 04/05/20 05:12 Plt Count 137 10^3/uL (150-450) L 04/05/20 05:12 Lymph % (Auto) 24.8 % (13-45) 04/05/20 05:12 [place] % (Auto) 7.0 % (3-13) 04/05/20 05:12 Eos % (Auto) 0.1 % (0-6) 04/05/20 05:12 Baso % (Auto) 0.2 % (0-2) 04/05/20 05:12 Absolute Neuts (auto) 6.1 10^3/uL (1.7-8.2) 04/05/20 05:12 Absolute Lymphs (auto) 2.2 10^3/uL (0.5-4.7) 04/05/20 05:12 Absolute Monos (auto) 0.6 10^3/uL (0.1-1.4) 04/05/20 05:12 Absolute Eos (auto) 0.0 10^3/uL (0.0-0.6) 04/05/20 05:12 Absolute Basos (auto) 0.0 10^3/uL (0.0-0.2) 04/05/20 05:12 Seg Neutrophils % 67.9 % (42-78) 04/05/20 05:12 PT 12.7 SEC (11.4-15.4) 04/03/20 11:45 INR 0.95 04/03/20 11:45 APTT 26.7 SEC (23.5-35.8) 04/04/20 04:52 Sodium 136.6 mmol/L (137-145) L 04/04/20 04:52 Potassium 4.0 mmol/L (3.6-5.0) 04/04/20 04:52 Chloride 105 mmol/L (98-107) 04/04/20 04:52 Carbon Dioxide 24 mmol/L (22-30) 04/04/20 04:52 Anion Gap 8 (5-19) 04/04/20 04:52 BUN 18 mg/dL (7-20) 04/04/20 04:52 Creatinine 0.79 mg/dL (0.52-1.25) 04/04/20 04:52 Est GFR ( Amer) > 60 (>60) 04/04/20 04:52 Est GFR (MDRD) Non-Af > 60 (>60) 04/04/20 04:52 Glucose 146 mg/dL (75-110) H 04/04/20 04:52 Hemoglobin A1c % 6.4 % (4.7-6.0) H 04/04/20 04:52 Lactic Acid 1.3 mmol/L (0.7-2.1) 04/03/20 12:40 Calcium 8.2 mg/dL (8.4-10.2) L 04/04/20 04:52 Magnesium 1.6 mg/dL (1.6-2.3) 04/04/20 04:52 Total Bilirubin 1.0 mg/dL (0.2-1.3) 04/04/20 04:52 Direct Bilirubin 0.0 mg/dL (0.0-0.4) 04/04/20 04:52 Neonat Total Bilirubin Not Reportable 04/04/20 04:52 Neonat Direct Bilirubin Not Reportable 04/04/20 04:52 Neonat Indirect Bili Not Reportable 04/04/20 04:52 AST 25 U/L (17-59) 04/04/20 04:52 ALT 22 U/L (<50) 04/04/20 04:52 Alkaline Phosphatase 51 U/L (38-126) 04/04/20 04:52 Creatine Kinase 46 U/L (55-170) L 04/03/20 11:45 NT-Pro-B Natriuret Pep 92 pg/mL (<125) 04/03/20 11:45 Total Protein 5.8 g/dL (6.3-8.2) L 04/04/20 04:52 Albumin 3.4 g/dL (3.5-5.0) L 04/04/20 04:52 Amylase 739 U/L (30-110) H 04/03/20 11:45 Lipase 1817.6 U/L (23-300) H 04/05/20 05:12 Urine Color YELLOW 04/03/20 13:30 Urine Appearance SLIGHTLY-CLOUDY 04/03/20 13:30 Urine pH 8.0 (5.0-9.0) 04/03/20 13:30 Ur Specific [place] 1.009 04/03/20 13:30 Urine Protein NEGATIVE mg/dL (NEGATIVE) 04/03/20 13:30 Urine Glucose (UA) NEGATIVE mg/dL (NEGATIVE) 04/03/20 13:30 Urine Ketones TRACE mg/dL (NEGATIVE) H 04/03/20 13:30 Urine Blood NEGATIVE (NEGATIVE) 04/03/20 13:30 Urine Nitrite NEGATIVE (NEGATIVE) 04/03/20 13:30 Urine Bilirubin NEGATIVE (NEGATIVE) 04/03/20 13:30 Urine Urobilinogen 2.0 mg/dL (<2.0) H 04/03/20 13:30 Ur Leukocyte Esterase NEGATIVE (NEGATIVE) 04/03/20 13:30 Urine WBC (Auto) 1 /HPF 04/03/20 13:30 Urine Mucus (Auto) RARE /LPF 04/03/20 13:30 Urine Ascorbic Acid NEGATIVE (NEGATIVE) 04/03/20 13:30 Influenza A (Rapid) Cancelled 04/03/20 12:15 Influenza B (Rapid) Cancelled 04/03/20 12:15 SARS-CoV-2 (PCR) NEGATIVE (NEGATIVE) 04/03/20 13:50 Group A Strep Rapid Cancelled 04/03/20 12:15 04/03/20 11:45 NT-Pro-B Natriuret Pep 92 Impressions: Chest X-Ray 04/03/20 12:08 IMPRESSION: NO ACUTE RADIOGRAPHIC FINDING IN THE CHEST. Abdomen/Pelvis CT 04/03/20 13:17 IMPRESSION: 1. INFLAMMATORY STRANDING AND FLUID IN THE PERIPANCREATIC SOFT TISSUES. SIMILAR FINDINGS IN 2018 AND 2014. MAY BE DUE TO CHRONIC AND RECURRENT PANCREATITIS. 2. STABLE CORTICAL LESIONS IN BOTH KIDNEYS, LIKELY COMPLEX CYSTS. 3. STABLE SURGICAL CHANGES. RESECTION OF THE RIGHT HEPATIC LOBE. 4. NO OTHER SIGNIFICANT OR ACUTE FINDING IN THE ABDOMEN OR PELVIS ON CT SCAN WITH IV CONTRAST. Stroke Is this a Stroke Patient?: No Acute Heart Failure - Is this a Heart Failure Patient?: No
== END 2020-04-05 11:58 | disposition home or self-care (01) | DRG 439 ==
LOC: ER 11:05 → EH 14:57 → 4N 16:17
PROVIDERS: ADMIT Hospitalist; ATTEND Physician Assistant
DX: K85.90 Acute pancreatitis without necrosis or infection, unspecified (principal); E27.40 Unspecified adrenocortical insufficiency; I10 Essential (primary) hypertension; K86.1 Other chronic pancreatitis; E09.9 Drug or chemical induced diabetes mellitus without complications; T38.0X5A Adverse effect of glucocorticoids and synthetic analogues, initial encounter; Z03.818 Encounter for observation for suspected exposure to other biological agents ruled out; Z85.820 Personal history of malignant melanoma of skin; Z79.84 Long term (current) use of oral hypoglycemic drugs; Z87.891 Personal history of nicotine dependence; Z79.891 Long term (current) use of opiate analgesic; Z79.899 Other long term (current) drug therapy; Z82.49 Family history of ischemic heart disease and other diseases of the circulatory system
CPT/HCPCS: 36415; 71045; 74177; 80053; 81001; 82150; 82550; 83036; 83605; 83690; 83735; 83880; 85025; 85610; 85730; 87635; 93005; 93010; 96361; 96374; 99285; C9803; J1650; J2270; J3490; J7030; S0028

== ENCOUNTER → 2020-04-03 | Outpatient (CLI) | payer OTHER, MEDICARE ==
--- NOTE | 2020-04-03 11:02 | ER RDC ASSESSMENT REPORT ---
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[place] no positive COVID exposure - Symptoms Subjective Fever([place] feverish): Yes Chills: Yes Muscule Aches: Yes Runny Nose: No Sore Throat: No Cough (New or worsening chronic cough): No Shortness of breath: No Nausea or Vomiting: Yes Headache: No Abdominal Pain: Yes --How many day(s)?: Work-up at 3 AM with abdominal pain sharp points to the left Diarrhea(3 or more loose stools in last 24 hours): Yes - Do you have any of the following Chronic lung disease: Asthma or emphysema or COPD: No Cystic Fibrosis: No Diabetes: Yes High Blood Pressure: Yes Cardiovascular Disease: Yes Chronic Kidney Disease: No Chronic Liver Disease: Yes Chronic blood disorder like Sickle Cell Disease: No Weak immune system due to disease or medication: No Neurologic condition that limits movement: No Developmental delay - Moderate to Severe: No Recent (within past 2 weeks) or current : No Morbid Obesity (>100 pounds over ideal weight): No Obesity Comment: Height 5 feet 11 inches weight 205 pounds Other Comment: Has history of cancer melanoma previous liver resection previous history of pancreatitis. - Objective Temperature: 99.5 F Pulse Rate: 93 Respiratory Rate: 20 Blood Pressure: 161/75 O2 Sat by Pulse Oximetry: 93 Objective: Given above, testing performed: If Testing Performed: Test Specimen Type Sent to General - General Information source: Patient Notes: Patient here today at [facility] for COVID testing. Woke up this morning at 3 AM with sharp abdominal pain fever of 102 states was fine yesterday reports this resembles to what he had previously a year or so ago with pancreatitis. Contacted PCP [facility] [place] and came here. Continues to experience sharp abdominal pain. 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 HEAD: Atraumatic, normocephalic. EYES: sclera anicteric, conjunctiva are normal. ENT: nares patent. Moist mucous membranes. NECK: Normal range of motion, supple without lymphadenopathy LUNGS: CTAB and equal. No wheezes rales or rhonchi. Resp even and unlabored. Lung sounds clear HEART: Regular rate and rhythm without murmurs ABDOMEN: Soft, nontender, normal bowel sounds, guarding to left side. Abdomen round/distended EXTREMITIES: Normal range of motion, no pitting edema. No cyanosis. NEUROLOGICAL: Normal speech. PSYCH: Normal mood, normal affect. SKIN: Warm, Dry, normal turgor, Diagnostic Results Laboratory Results: informed of negative rapid strep negative rapid flu results. reports patient went to ED for evaluation after visit to [facility]. pending strep culture pending COVID testing results. Patient provided instructions regarding COVID to include: As a person under investigation for Covid 19, the [place] department of Health and Human Services, division of public health advises you to adhere to the following guidance until your test results are reported to you. If your test result is positive, you will receive additional information from your provider and your local health department at that time. Remain at home until you are cleared by the health provider or public health authorities. Keep a log of visitors to your home, notify any visitors to your home of your isolation status. If you plan to move to a new address or leave the county, notify the local health department in your County. Call your doctor or seek care if you have an urgent medical need. Before seeking medical care, call ahead to get instructions from the provider before arriving at the medical office clinic or hospital. Notify them that you are being tested for the virus that causes Covid 19 so that arrangements can be made, as necessary, to prevent transmission to others in the healthcare setting. Next, notify the local health department in your county. If a medical emergency arises and you need to call 911, inform the first responders that you are being tested for the virus that causes Covid 19. Next, notify the local health department in your county. Patient Education/Counseling Counseling/Education: Patient presents with upper respiratory symptoms worrisome for possible Covid 19. Patient does not have emergency worring symptoms such as difficulty breathing, shortness of breath, chest pain, pressure, confusion or cyanosis. Patient appears suitable for discharge. Patient plans to contact PCP at [facility] in [place] and to ED if unable to contact them this morning. Patient's vital signs are stable and patient is nontoxic in appearance. Good return precautions have been discussed with patient, patient verbalized understanding and is agre eable with discharge plan of care at this time. RDC Discharge - Discharge Clinical Impression: COVID - 19 SCREENING Abdominal pain Qualifiers: Abdominal location: unspecified location Qualified Code(s): R10.9 - Unspecified abdominal pain Condition: Stable Disposition: To ED
[2020-04-03 11:07] VITALS: BP 161/75
[2020-04-03 12:12] LABS: A TYPE INFLUENZA AG NEGATIVE (NEGATIVE); B INFLUENZA AG NEGATIVE (NEGATIVE)
== END ==
LOC: RDC 10:25
PROVIDERS: ATTEND Nurse Practitioner Family
DX: Z20.828 Contact with and (suspected) exposure to other viral communicable diseases (principal); R10.9 Unspecified abdominal pain; R50.9 Fever, unspecified; M79.10 Myalgia, unspecified site; R11.0 Nausea; R19.7 Diarrhea, unspecified; I10 Essential (primary) hypertension; K76.89 Other specified diseases of liver; Z85.820 Personal history of malignant melanoma of skin; E09.9 Drug or chemical induced diabetes mellitus without complications; T38.0X5D Adverse effect of glucocorticoids and synthetic analogues, subsequent encounter
CPT/HCPCS: 87070; 87635; 87804; 87880; 99211; C9803

== ENCOUNTER → 2020-10-30 | Outpatient (CLI) | payer MEDICARE, OTHER ==
[2020-10-30 11:21] LABS: ABSOLUTE EOSINOPHILS # (AUTO) 0.1 10^3/uL (0.0-0.6); ABSOLUTE LYMPHOCYTES (AUTO) 2.4 10^3/uL (0.5-4.7); ABSOLUTE NEUT (AUTO) 7.4 10^3/uL (1.7-8.2); BASOPHILS % (AUTO) 0.4 % (0-2); HEMATOCRIT 40.7 % (37.9-51.0); HEMOGLOBIN 14.5 g/dL (13.5-17.0); LYMPHOCYTES % (AUTO) 22.2 % (13-45); MEAN CORPUSCULAR HEMOGLOBIN 30.8 pg (27.0-33.4); MEAN CORPUSCULAR HGB CONC 35.7 g/dL (32.0-36.0); MEAN CORPUSCULAR VOLUME 86 fl (80-97); MONOCYTES % (AUTO) 8.8 % (3-13); PLATELET COUNT 154 10^3/uL (150-450); RED BLOOD COUNT 4.72 10^6/uL (4.35-5.55); RED CELL DISTRIBUTION WIDTH 13.3 % (11.5-14.0); SEGMENTED NEUTROPHILS % (AUTO) 67.6 % (42-78); TOTAL CELLS COUNTED % (AUTO) 100 %
[2020-10-30 11:56] LABS: ALBUMIN 4.3 g/dL (3.5-5.0); ALKALINE PHOSPHATASE 63 U/L (38-126); ANION GAP 12 (5-19); ASPARTATE AMINO TRANSFERASE 30 U/L (17-59); BILIRUBIN,DIRECT 0.2 mg/dL (0.0-0.4); BILIRUBIN,TOTAL 1.7 mg/dL (0.2-1.3); BLOOD UREA NITROGEN 15 mg/dL (7-20); CALCIUM 9.6 mg/dL (8.4-10.2); CARBON DIOXIDE 30 mmol/L (22-30); CHLORIDE 99 mmol/L (98-107); GLUCOSE 120 mg/dL (75-110); POTASSIUM 4.4 mmol/L (3.6-5.0)
== END ==
LOC: OD 10:46
PROVIDERS: ATTEND Family Medicine
DX: K85.90 Acute pancreatitis without necrosis or infection, unspecified (principal); R10.10 Upper abdominal pain, unspecified
CPT/HCPCS: 36415; 80053; 83690; 85025; 86140